=== PATIENT | female | born 1955 | race Caucasian/White ===

== ENCOUNTER 2016-04-15 10:59 | Observation (INO) | payer OTHER ==
[2016-04-15] VITALS (12 sets, daily range): BP systolic 119–158; BP diastolic 70–97; PULSE 72–90; RESP 16–18; TEMP 98.1–98.6; O2SAT 95–99
[~2016-04-15] VITALS: Ht 152.4 cm; Wt 65.6 kg
[2016-04-15] MEDS ORDERED: LIDOCAINE VISCOUS 2% SOLN 15 ML UDC PO ONE (11:15)
[2016-04-15] MEDS ORDERED: ASPIRIN 81 MG CHEW TAB CHEW ONE (11:15)
[2016-04-15] MEDS ORDERED: PANTOPRAZOLE SODIUM 40 MG VIAL IVP ONE (11:15)
[2016-04-15] MEDS ORDERED: SODIUM CHLORIDE 0.9% FLUSH 5 ML FLUSH IVF PRN ×2 (11:15→13:00)
[2016-04-15] MEDS ORDERED: ALUMINUM/MAGNESIUM/SIMETH 30 ML CUP PO ONE (11:15)
[2016-04-15] MEDS ORDERED: PRIL20CA9 PO (11:16)
[2016-04-15] MEDS ORDERED: ALPR.5 PO (11:16)
[2016-04-15] MEDS ORDERED: MECL25CH CHEW (11:16)
[2016-04-15] MEDS ORDERED: PLAQ200T PO (11:16)
[2016-04-15] MEDS ORDERED: ZYRT10TA PO (11:16)
[2016-04-15 11:34] LABS: AUTOMATED NEUTROPHIL # 2.2 TH/MM3 (1.8-7.7); BASOPHIL % 0.9 % (0.0-2.0); EOSINOPHIL # 0.1 TH/MM3 (0-0.4); EOSINOPHIL % 1.3 % (0.0-4.0); HEMATOCRIT 37.2 % (35.0-46.0); HEMO FLAGS DIFF FINAL; LYMPH % 32.7 % (9.0-44.0); LYMPHOCYTE # 1.3 TH/MM3 (1.0-4.8); MEAN CELL VOLUME 84.1 FL (80.0-100.0); MEAN CORPUSCULAR HEMOGLOBIN 27.5 PG (27.0-34.0); MEAN CORPUSCULAR HGB CONC 32.8 % (32.0-36.0); MONO % 7.5 % (0.0-8.0); NEUT % 57.6 % (16.0-70.0); PLATELET COUNT 198 TH/MM3 (150-450); RED BLOOD COUNT 4.43 MIL/MM3 (4.00-5.30); RED CELL DISTRIBUTION WIDTH 12.2 % (11.6-17.2); WHITE BLOOD COUNT 3.9 TH/MM3 (4.0-11.0)
[2016-04-15 11:46] LABS: CHLORIDE 104 MEQ/L (98-107); POTASSIUM 4.1 MEQ/L (3.5-5.1); SODIUM (NA) 143 MEQ/L (136-145)
[2016-04-15 11:49] LABS: ANION GAP 8 MEQ/L (5-15); BICARBONATE 31.3 MEQ/L (21.0-32.0)
[2016-04-15 11:50] LABS: APTT (PATIENT) 25.3 SEC (24.3-30.1); BLOOD UREA NITROGEN 14 MG/DL (7-18); MAGNESIUM 2.3 MG/DL (1.5-2.5); PROTHROMBIN TIME - PATIENT 10.8 SEC (9.8-11.6)
--- NOTE | 2016-04-15 11:50 | RADHPO ---
EXAM DATE/TIME: 04/15/2016 11:25 [place] COMPARISON: No previous studies available for comparison. INDICATIONS : Chest pain MEDICAL HISTORY : None. SURGICAL HISTORY : None. ENCOUNTER: Initial ACUITY: 3 days PAIN SCORE: 7/10 LOCATION: Bilateral upper chest FINDINGS: PA and lateral views of the chest demonstrate the lungs to be symmetrically aerated without evidence of mass, infiltrate or effusion. The cardiomediastinal contours are unremarkable. Osseous structure s are intact. There are primary bony degenerative changes of the thoracic spine. CONCLUSION: No acute disease. Dc Goodman MD on April 15, 2016 at 11:40 Board Certified Radiologist. This report was verified electronically.
[2016-04-15 11:52] LABS: ALT (GPT) 29 U/L (10-53); AST (GOT) 37 U/L (15-37); GLOMERULAR FILTRATION RATE 75 ML/MIN (>89)
[2016-04-15 11:54] LABS: TOTAL BILIRUBIN ADULT 0.7 MG/DL (0.2-1.0)
[2016-04-15 11:55] LABS: ALKALINE PHOSPHATASE 99 U/L (45-117)
[2016-04-15 12:10] LABS: INDIRECT BILIRUBIN 0.6 MG/DL (0.0-0.8)
--- NOTE | 2016-04-15 12:29 | PD ---
HPI Chief Complaint: Chest Pain Time Seen by Provider: 11:06 Travel History International Travel<30 days: No Contact w/Intl Traveler<30days: No Traveled to known affect area: No History of Present Illness HPI Patient is a 60-year-old female who comes in complaining of substernal chest pain radiating out to both sides of her chest as well as her back. She says she has been having some discomfort on and off since Friday. She thought it was getting better, but today it woke her up from sleep. She says she's had some nausea, but no vomiting. She denies diaphoresis. She says she has extensive cardiac history in her family with multiple family members having massive MIs in their 50s. She also reports having GERD issues, but says that this pain feels different than her typical GERD. She denies cough or cold. She denies fever or chills. PFSH Past Medical History GERD: Yes Medical other: Yes (loopis) Tetanus Vaccination: > 5 Years Influenza Vaccination: Yes ?: Not Tubal Ligation: Yes Social History Alcohol Use: Yes Tobacco Use: No Substance Use: No Allergies-Medications (Allergen,Severity, Reaction): Coded Allergies: Codeine (Verified Allergy, Severe, Anaphylaxis, 04/15/16) Doxycycline (Verified Allergy, Severe, Anaphylaxis, 04/15/16) Percocet (Verified Allergy, Severe, Anaphylaxis, 04/15/16) Sulfa (Verified Allergy, Severe, Anaphylaxis, 04/15/16) Reported Meds & Prescriptions Reported Meds & Active Scripts Active Reported Zyrtec Allergy (Cetirizine HCl) 10 Mg Tab 10 Mg PO DAILY Prilosec (Omeprazole) 20 Mg Cap 20 Mg PO DAILY Meclizine (Meclizine HCl) 25 Mg Chew 25 Mg CHEW DIRECTED PRN Xanax (Alprazolam) 0.5 Mg Tab 0.5 Mg PO Q8H PRN Plaquenil (Hydroxychloroquine Sulfate) 200 Mg Tab 200 Mg PO DAILY Take with food Review of Systems Except as stated in HPI: all other systems reviewed are Neg General / Constitutional: No: Fever, Chills HENT: No: Headaches, Lightheadedness Cardiovascular: Positive: Chest Pain or Discomfort Respiratory: No: Shortness of Breath Gastrointestinal: Positive: Nausea, Abdominal Pain, No: Vomiting Genitourinary: No: Dysuria Musculoskeletal: No: Weakness Skin: No Rash, No Change in Pigmentation Neurologic: No: Weakness, Dizziness Physical Exam Narrative GENERAL: Awake and alert in no acute distress. SKIN: Warm and dry. HEAD: Atraumatic. Normocephalic. EYES: Pupils equal and round. No scleral icterus. ENT: Mucous membranes pink and moist. NECK: Trachea midline. No JVD. CARDIOVASCULAR: Regular rate and rhythm. No murmur appreciated. RESPIRATORY: No accessory muscle use. Clear to auscultation. Breath sounds equal bilaterally. GASTROINTESTINAL: Abdomen soft, nondistended. Mild tenderness to palpation of the epigastric area. MUSCULOSKELETAL: No obvious deformities. No clubbing. No cyanosis. No edema. NEUROLOGICAL: Awake and alert. No obvious cranial nerve deficits. Motor grossly within normal limits. Normal speech. PSYCHIATRIC: Appropriate mood and affect; insight and judgment normal. Data Data Last Documented VS Vital Signs Date Time Temp Pulse Resp B/P Pulse Ox O2 Delivery O2 Flow Rate FiO2 04/15/16 11:46 158/97 137/84 04/15/16 11:20 98 Room Air 04/15/16 11:16 90 18 04/15/16 11:09 98.6 Orders Basic Metabolic Panel (Bmp) (04/15/16 11:15) Complete Blood Count With Diff (04/15/16 11:15) Magnesium (Mg) (04/15/16 11:15) Prothrombin Time / Inr (Pt) (04/15/16 11:15) Act Partial Throm Time (Ptt) (04/15/16 11:15) Troponin I (04/15/16 11:15) Lipase (04/15/16 11:15) Ecg Monitoring (04/15/16 11:15) Bilateral Bp Monitoring (04/15/16 11:15) Iv Access Insert/Monitor (04/15/16 11:15) Oximetry (04/15/16 11:15) Sodium Chloride 0.9% Flush (Ns Flush) (04/15/16 11:15) Chest, Pa & Lat (04/15/16 11:15) Hepatic Functional Panel (04/15/16 11:15) Aspirin Chew (Aspirin Chew) (04/15/16 11:15) Pantoprazole Inj (Protonix Inj) (04/15/16 11:15) Al-Mag Hy-Si 40-40-4 Mg/Ml Liq (Mag-Al P (04/15/16 11:15) Lidocaine 2% Viscous (Xylocaine 2% Visco (04/15/16 11:15) Labs Laboratory Tests Test 04/15/16 11:25 White Blood Count 3.9 TH/MM3 Red Blood Count 4.43 MIL/MM3 Hemoglobin 12.2 GM/DL Hematocrit 37.2 % Mean Corpuscular Volume 84.1 FL Mean Corpuscular Hemoglobin 27.5 PG Mean Corpuscular Hemoglobin 32.8 % Concent Red Cell Distribution Width 12.2 % Platelet Count 198 TH/MM3 Mean Platelet Volume 9.5 FL Neutrophils (%) (Auto) 57.6 % Lymphocytes (%) (Auto) 32.7 % Monocytes (%) (Auto) 7.5 % Eosinophils (%) (Auto) 1.3 % Basophils (%) (Auto) 0.9 % Neutrophils # (Auto) 2.2 TH/MM3 Lymphocytes # (Auto) 1.3 TH/MM3 Monocytes # (Auto) 0.3 TH/MM3 Eosinophils # (Auto) 0.1 TH/MM3 Basophils # (Auto) 0.0 TH/MM3 CBC Comment DIFF FINAL Differential Comment Prothrombin Time 10.8 SEC Prothromb Time International 1.0 RATIO Ratio Activated Partial 25.3 SEC Thromboplast Time Sodium Level 143 MEQ/L Potassium Level 4.1 MEQ/L Chloride Level 104 MEQ/L Carbon Dioxide Level 31.3 MEQ/L Anion Gap 8 MEQ/L Blood Urea Nitrogen 14 MG/DL Creatinine 0.78 MG/DL Estimat Glomerular Filtration 75 ML/MIN Rate Random Glucose 94 MG/DL Calcium Level 8.9 MG/DL Magnesium Level 2.3 MG/DL Total Bilirubin 0.7 MG/DL Direct Bilirubin 0.1 MG/DL Indirect Bilirubin 0.6 MG/DL Aspartate Amino Transf 37 U/L (AST/SGOT) Alanine Aminotransferase 29 U/L (ALT/SGPT) Alkaline Phosphatase 99 U/L Troponin I LESS THAN 0.02 NG/ML Total Protein 8.0 GM/DL Albumin 4.1 GM/DL Lipase 102 U/L [facility] Medical Decision Making Medical Screen Exam Complete: Yes Emergency Medical Condition: Yes Interpretation(s) EEG shows sinus rhythm at 93, no ST elevation or depression, short [place] interval. Differential Diagnosis GERD versus ACS versus NSTEMI versus STEMI Narrative Course Patient is a 60-year-old female who comes in complaining of substernal chest pain. Exam shows some mild epigastric tenderness on palpation. Patient is concerned because she has extensive cardiac history with multiple family members dying in their 50s from heart attacks. IV established, patient connected to the electronic device monitor. Labs sent including first troponin are negative. Patient given aspirin as well as GI cocktail. Will be placed in chest pain center for further management. Diagnosis Primary Impression: Chest pain Qualified Code: R07.9 - Chest pain, unspecified type Admitting Information Admitting Physician Requests: Observation Condition: Stable Leia Aviles MD Apr 15, 2016 12:29
[2016-04-15] MEDS ORDERED: ALPRAZolam 0.5 MG TAB PO PRN (13:15)
[2016-04-15 14:37] LABS: CREATINE KINASE 54 U/L (26-192)
--- NOTE | 2016-04-15 16:07 | HHI.HP ---
[facility] Service [facility] ([place], [place])ists Primary Care Physician Non-Staff Admission Diagnosis chest pain Diagnoses: (1) Chest pain Diagnosis: Principal (2) GERD (gastroesophageal reflux disease) Diagnosis: Principal Chief Complaint: chest pain Travel History International Travel<30 Days: No Contact w/Intl Traveler <30 Da: No Traveled to Known Affected Are: No History of Present Illness 60-year-old female with history of GERD, esophageal dilatation, lupus , arthritis, and Mnire's disease is admitted to chest pain center. Patient states she came down from [place] on Friday. He started experience pain over the lower sternum at that time. She states pain would come and go, but gradually became worse and woke her from sleep this morning. She states the pain radiated to both sides of the anterior chest and the middle of the back. She admits to some shortness of breath because of the pain. Patient states it felt like a ache and was stabbing at times. She states the worst pain was a 10/ 10. The pain will last at most one hour. Denies any diaphoresis, numbness, or tingling. Patient admits to sinus congestion and allergies but denies being ill otherwise. Patient states she had esophageal dilatation in May 2015. States symptoms are similar to before she had that procedure done but a "stronger feeling". She took Tums at home without relief. She was given a GI cocktail when she came to the ED which caused pain to subside although it is starting to return currently. She takes an NSAID 2-3 times per week but denies any increased use recently. She does admit to some increased regurgitation recently as well as some swallowing issues the last couple weeks stating she's had to chew her food into smaller pieces. Admits to some nausea. Denies any hematochezia or melena. Patient drove from [place] but made frequent stops. Denies any hemoptysis, history of DVT or pulmonary embolus, estrogen use, or recent trauma, surgeries, or hospitalizations. Admits to mild edema in both legs from traveling. Patient states she supposed to see a cullet crusher on April 23 due to prolonged QT interval on a routine EKG when she had her physical. She states she saw her PCP on 03/27/16 with cholesterol labs performed; triglycerides 93, LDL 104, and HDL 67, total cholesterol 190. Patient does have significant family history of heart disease, but she denies any personal history of diabetes, hyperlipidemia, hypertension. Review of Systems Constitutional: COMPLAINS OF: Dizziness (chronic from meniere's dz), DENIES: Diaphoretic episodes, Fever, Chills Eyes: DENIES: Blurred vision Respiratory: COMPLAINS OF: Shortness of breath, DENIES: Cough, Hemoptysis Cardiovascular: COMPLAINS OF: Chest pain, Lower Extremity Edema Gastrointestinal: COMPLAINS OF: Abdominal pain (epigastric), Constipation ( chronic), Nausea, Difficulty Swallowing, DENIES: Black stools, Bloody stools, Diarrhea, Vomiting Genitourinary: DENIES: Dysuria Musculoskeletal: COMPLAINS OF: Back pain Integumentary: DENIES: Rash Neurologic: DENIES: Headache, Localized weakness, Paresthesias Other ENT: + sinus congestion Past Family Social History Past Medical History GERD Lupus Arthritis Mnire's disease Right wrist fracture 2015, non-surgical Bilateral cataracts Past Surgical History Left cataract surgery May 2015 Tubal ligation Abdominal cyst removal Reported Medications Zyrtec Allergy (Cetirizine HCl) 10 Mg Tab 10 Mg PO DAILY Prilosec (Omeprazole) 20 Mg Cap 20 Mg PO DAILY Meclizine (Meclizine HCl) 25 Mg Chew 25 Mg CHEW DIRECTED PRN Xanax (Alprazolam) 0.5 Mg Tab 0.5 Mg PO Q8H PRN Plaquenil (Hydroxychloroquine Sulfate) 200 Mg Tab 200 Mg PO DAILY Take with food Allergies: Coded Allergies: Codeine (Verified Allergy, Severe, Anaphylaxis, 04/15/16) Doxycycline (Verified Allergy, Severe, Anaphylaxis, 04/15/16) Percocet (Verified Allergy, Severe, Anaphylaxis, 04/15/16) Sulfa (Verified Allergy, Severe, Anaphylaxis, 04/15/16) Family History Mother: Hyperlipidemia, atrial fibrillation and flutter; of lymphoma. Father: First DC at age 50. He suffered from multiple MIs and underwent bypass , but of heart failure at age 62. Paternal grandfather: at age 59 from heart disease. Brother: Age 53. Crohn's disease. Social History Patient is visiting from [place]. Patient walks 2 miles daily. Admits to occasional alcohol use. No history of cigarette smoking or tobacco use. No history of illicit drug use. Physical Exam Vital Signs Vital Signs Date Time Temp Pulse Resp B/P Pulse Ox O2 Delivery O2 Flow Rate FiO2 04/15/16 15:15 98.5 73 18 148/94 97 04/15/16 15:02 80 18 138/74 98 04/15/16 13:30 78 18 144/80 99 Room Air 04/15/16 12:30 80 18 142/84 98 Room Air 04/15/16 11:46 158/97 137/84 04/15/16 11:20 98 Room Air 04/15/16 11:16 90 18 98 Room Air 04/15/16 11:09 98.6 90 18 158/97 98 Physical Exam GENERAL: This is a well-nourished, well-developed patient, in no apparent distress. SKIN: No rashes, ecchymoses or lesions. Cool and dry. HEAD: Atraumatic. Normocephalic. EYES: No scleral icterus. No injection or drainage. ENT: Airway patent. NECK: Trachea midline. CHEST: Sore over the lower sternum. CARDIOVASCULAR: Regular rate and rhythm without murmurs. One split beat noted. RESPIRATORY: Clear to auscultation. Breath sounds equal bilaterally. No wheezes , rales, or rhonchi. GASTROINTESTINAL: Patient admits to soreness with palpation over the epigastric region. Abdomen soft, nondistended. No guarding. MUSCULOSKELETAL: Equivocal trace edema. No calf pain bilaterally. BACK: No tenderness over the thoracic or lumbar spine. NEUROLOGICAL: Awake and alert. Motor grossly within normal limits. Five out of 5 muscle strength in bilateral arms and legs. Normal speech. Laboratory Laboratory Tests Test 04/15/16 04/15/16 11:25 14:10 White Blood Count 3.9 Red Blood Count 4.43 Hemoglobin 12.2 Hematocrit 37.2 Mean Corpuscular Volume 84.1 Mean Corpuscular Hemoglobin 27.5 Mean Corpuscular Hemoglobin 32.8 Concent Red Cell Distribution Width 12.2 Platelet Count 198 Mean Platelet Volume 9.5 Neutrophils (%) (Auto) 57.6 Lymphocytes (%) (Auto) 32.7 Monocytes (%) (Auto) 7.5 Eosinophils (%) (Auto) 1.3 Basophils (%) (Auto) 0.9 Neutrophils # (Auto) 2.2 Lymphocytes # (Auto) 1.3 Monocytes # (Auto) 0.3 Eosinophils # (Auto) 0.1 Basophils # (Auto) 0.0 CBC Comment DIFF FINAL Differential Comment Prothrombin Time 10.8 Prothromb Time International 1.0 Ratio Activated Partial 25.3 Thromboplast Time Sodium Level 143 Potassium Level 4.1 Chloride Level 104 Carbon Dioxide Level 31.3 Anion Gap 8 Blood Urea Nitrogen 14 Creatinine 0.78 Estimat Glomerular Filtration 75 Rate Random Glucose 94 Calcium Level 8.9 Magnesium Level 2.3 Total Bilirubin 0.7 Direct Bilirubin 0.1 Indirect Bilirubin 0.6 Aspartate Amino Transf 37 (AST/SGOT) Alanine Aminotransferase 29 (ALT/SGPT) Alkaline Phosphatase 99 Troponin I LESS THAN 0.02 LESS THAN 0.02 Total Protein 8.0 Albumin 4.1 Lipase 102 Total Creatine Kinase 54 Result Diagram: 04/15/16 1125 04/15/16 1125 Imaging Last Impressions Chest X-Ray 04/15/16 1115 Signed Impressions: Service Date/Time: Friday, April 15, 2016 11:25 - CONCLUSION: No acute disease. Dc Goodman MD Assessment and Plan Assessment and Plan 60-year-old female with: Chest pain: Lower sternum and epigastric region radiating to the bilateral anterior chest and back starting on Friday progressively worsening waking her up this morning. Associated with nausea. Similar to pain prior to esophageal dilation in 2016, but worse. Relieved with GI cocktail including Protonix, Viscous Lidocaine, and Maalox, but pain is starting to return. Patient has mild soreness over the lower sternum and epigastric region. CBC and CMP are unremarkable. Lipase is normal. EKGs 2 personally interpreted with normal sinus rhythm, possible LAD, but no ischemic abnormalities. Troponin 2 < 0.02. Chest x-ray personally interpreted without acute disease. Unlikely to be PE. O2 saturation 97-98%; HR 90 on presentation but now in the 70's. -Serial EKGs and cardiac enzymes -Nitroglycerin/morphine prn pain -Aspirin 81 mg by mouth daily. Patient received 162 mg in the ED. -Telemetry -Discussed with Dr. Bailey. Likely GI related but due to age and female with epigastric presentation as well as family history, will proceed with stress test. Provided last EKG is normal, patient will undergo exercise treadmill test tomorrow am as she is capable of walking and knows what the test entails. -No caffeine or decaf after 7 PM. NPO after midnight. GERD: -Continue Protonix 20 mg po daily. -Maalox and Pepcid as needed. -Patient advised to follow-up with GI. DVT prevention: TEDs/SCDs. Discussed Condition With Dr. Bailey, attending. Problem Qualifiers (1) Chest pain: Qualified Code: R07.9 - Chest pain, unspecified type Pau Gonzalez Apr 15, 2016 16:06 Brea Bailey MD Apr 15, 2016 19:13
[2016-04-15] MEDS ORDERED: NITROGLYCERIN 0.4 MG SL 25 TABS/BTL SL PRN (16:30)
[2016-04-15] MEDS ORDERED: ONDANSETRON HCL 4 MG/2 ML VIAL IV PRN (17:00)
[2016-04-15] MEDS ORDERED: MORPHINE SULFATE 4 MG/ML INJ IV PRN (17:00)
[2016-04-15] MEDS ORDERED: FAMOTIDINE 20 MG TAB PO PRN (17:00)
[2016-04-15] MEDS ORDERED: ACETAMINOPHEN 500 MG CPLT PO PRN (17:00)
[2016-04-15] MEDS ORDERED: ALUMINUM/MAGNESIUM/SIMETH 30 ML CUP PO PRN (17:00)
[2016-04-15 18:03] LABS: CREATINE KINASE 53 U/L (26-192)
[2016-04-15] MEDS: SODIUM CHLORIDE 0.9% FLUSH 5 ML FLUSH IVF SCH (21:58)
[2016-04-16] VITALS: BP 139/85; PULSE 96; RESP 16; TEMP 97.8; O2SAT 96
[2016-04-16 04:00] VITALS: BP 148/75; PULSE 71; RESP 16; TEMP 98; O2SAT 97
[2016-04-16 08:35] VITALS: BP 137/87; PULSE 79; RESP 18; TEMP 97.7; O2SAT 98
[2016-04-16] MEDS ORDERED: ASPIRIN EC 81 MG TABEC PO SCH (09:00)
[2016-04-16] MEDS ORDERED: PANTOPRAZOLE SOD 20 MG DELAYED RELEASE TAB PO SCH (09:00)
[2016-04-16] MEDS ORDERED: HYDROXYCHLOROQUINE SULFATE 200 MG TAB PO SCH (09:00)
[2016-04-16] MEDS: SODIUM CHLORIDE 0.9% FLUSH 5 ML FLUSH IVF SCH (09:44)
--- NOTE | 2016-04-16 10:03 | HHI.PR ---
Subjective Remarks Patient seen and examined today. Patient denies any new complaints. No recurrent chest discomfort. Patient states that since she got a GI cocktail she has not had any recurrent discomfort. Objective Vitals Vital Signs Date Time Temp Pulse Resp B/P Pulse Ox O2 Delivery O2 Flow Rate FiO2 04/16/16 08:35 97.7 79 18 137/87 98 04/16/16 04:00 98.0 71 16 148/75 97 04/16/16 00:00 97.8 96 16 139/85 96 04/15/16 20:19 95 21 04/15/16 20:10 73 04/15/16 20:00 98.1 72 16 119/70 95 04/15/16 18:46 85 04/15/16 15:15 98.5 73 18 148/94 97 04/15/16 15:02 80 18 138/74 98 04/15/16 15:00 97 21 04/15/16 13:30 78 18 144/80 99 Room Air 04/15/16 12:30 80 18 142/84 98 Room Air 04/15/16 11:46 158/97 137/84 04/15/16 11:20 98 Room Air 04/15/16 11:16 90 18 98 Room Air 04/15/16 11:09 98.6 90 18 158/97 98 I/O 04/15/16 04/15/16 04/15/16 04/16/16 04/16/16 04/16/16 07:00 15:00 23:00 07:00 15:00 23:00 Intake Total 560 ml Balance 560 ml Intake Oral 560 ml # Voids 2 1 # Bowel Movements 0 Result Diagram: 04/15/16 1125 04/15/16 1125 Objective Remarks GENERAL: Well-developed, well-nourished, in no acute distress. alert and orientated HEENT: Head is normocephalic without any lesions or masses noted. Facial features are symmetric. Eyes: Extraocular muscles are intact. Conjunctivae were clear. NECK: Supple without any masses. Trachea midline no deviation. No JVD, CARDIAC: Regular rhythm, regular rate. S1/S2 are heard. No murmurs gallops or rubs. LUNGS: Clear to auscultation bilaterally. No wheeze, rhonchi or rales. No use of accessory muscles on inspiration or expiration. ABDOMEN: Soft, nontender. Nondistended. Bowel sounds heard in all 4 quadrants. No organomegaly or masses. Negative rebound, negative guarding EXTREMITIES: No edema, pulses are equal bilaterally. No cyanosis or clubbing NEUROLOGY: Mood and affect appear appropriate. Cranial nerves II through XII grossly intact. Moving all extremities, speech is clear Urinary Catheter: No Vascular Central Line Catheter: No A/P Assessment and Plan Chest pain: -Serial EKGs and cardiac enzymes reviewed by myself and remain negative without any changes -Nitroglycerin/morphine prn pain -Aspirin 81 mg by mouth daily. Patient received 162 mg in the ED. -Telemetry -Exercise stress test was performed which did not indicate any ischemia -Discussed with patient that likely secondary to GI etiology GERD: -Continue Protonix 20 mg po daily. -Maalox and Pepcid as needed. -Patient advised to follow-up with GI. DVT prevention: TEDs/SCDs. Written by Michael Horvath PA-C, acting as scribe for Dr. Bailey on 04/16/16 at 945. The documentation accurately reflects the work and decisions performed face-to- face by Dr. Bailey on 04/16/16 at 945. Discharge Planning Discharge home in stable condition Activity: Ad nelia. Diet: Healthy heart diet Medications per medication reconciliation Follow-up primary medical doctor in one week Medical Decision Making Impression and Plan The exam, history, and the medical decision-making described in the above note were completed with my assistance as the dictating practitioner. I attest that I had a [id number] encounter with the patient on the same day, and personally performed all of the history, exam, or medical decision making. I reviewed and agree with the plan.. Patient seen in room. Chest pain-free. Stress test results discussed with patient. Discharge plans discussed with patient. Likely GI related chest pain Michael Horvath Apr 16, 2016 10:03 Brea Bailey MD Apr 16, 2016 11:13
--- NOTE | 2016-04-16 10:04 | HHI.DCPOC ---
Discharge Care Plan Diagnosis: (1) Chest pain (2) GERD (gastroesophageal reflux disease) Your Health Problems Are: Chest Pain Goals to Promote Your Health * To prevent worsening of your condition and complications * To maintain your health at the optimal level Directions to Meet Your Goals Take your medications as prescribed Follow your dietary instruction Follow activity as directed Keep your appointments as scheduled Take your immunizations and boosters as scheduled If your symptoms worsen call your PCP, if no PCP go to Urgent Care Center or Emergency Room Smoking is Dangerous to Your Health. Avoid second hand smoke Call the 24-hour hour crisis hotline for domestic abuse at Michael Horvath Apr 16, 2016 10:04
--- NOTE | 2016-04-16 10:33 | EKG ---
Date Performed: 04/15/2016 Time Performed: 10:57:10 PTAGE: 60 years EKG: Sinus rhythm Short MN interval Leftward axis Borderline ECG NO PREVIOUS TRACING DOCTOR: Marky Garnett Interpretating Date/Time 04/16/2016 10:32:19
--- NOTE | 2016-04-16 10:47 | EKG ---
Date Performed: 04/15/2016 Time Performed: 17:20:32 PTAGE: 60 years EKG: Sinus rhythm . Normal ECG Compared to prior tracing no significant change PREVIOUS TRACING : 04/15/2016 14.01 DOCTOR: Marky Garnett Interpretating Date/Time 04/16/2016 10:44:18
--- NOTE | 2016-04-16 10:47 | EKG ---
Date Performed: 04/15/2016 Time Performed: 14:01:26 PTAGE: 60 years EKG: Sinus rhythm Leftward axis Borderline ECG Compared to prior tracing no significant change PREVIOUS TRACING : 04/15/2016 10.57 DOCTOR: Marky Garnett Interpretating Date/Time 04/16/2016 10:44:10
--- NOTE | 2016-04-22 09:32 | TR ---
Date Performed: 04/16/2016 Time Performed: 08:51:17 DOCTOR: Nancy Aguilera DRUG LIST: CLINICAL HISTORY: CHEST PAIN REASON FOR TEST: Chest pain. REASON FOR ENDING: Completed Protocol OBSERVATION: Chest Pain: None Arrhythmia: None CONCLUSION: Patient tolerated AMAYA protocol with Total Exercise Time=6:00 Maximum VI=813, Targe t HR [id number]=252.0% Maximum KG=177/92, Testing stopped secondary to goals acheived, During peak exer cise, patient was asymptomatic, quick upsloping ST segments,No significant ST depressions, HR and BP approipriate response to exercise. Recovery period, patient was asymptomatic, no arrythmia, HR and BP returned to baseline COMMENTS:
== END 2016-04-16 10:36 | disposition home or self-care (01) ==
LOC: PHED 10:59 → PHEDA 12:56 → PH3A 14:58
PROVIDERS: ADMIT Hospitalist; ATTEND Hospitalist
DX: K21.9 Gastro-esophageal reflux disease without esophagitis (principal); R07.2 Precordial pain; R11.0 Nausea; H81.09 Meniere's disease, unspecified ear; M32.9 Systemic lupus erythematosus, unspecified; R06.02 Shortness of breath; R60.9 Edema, unspecified; M19.90 Unspecified osteoarthritis, unspecified site; Z82.49 Family history of ischemic heart disease and other diseases of the circulatory system; Z79.82 Long term (current) use of aspirin
CPT/HCPCS: 71020; 80048; 80076; 82550; 83690; 83735; 84484; 85025; 85610; 85730; 93005; 93017; C9113; G0378; 96374